=== PATIENT | male | born 1965 | race Caucasian/White ===

== ENCOUNTER 2017-02-05 19:13 | Emergency (ER) | payer SELFPAY ==
[2017-02-05] MEDS ORDERED: DUONEB 0.5 MG/3 MG ONE ×2 (19:14→21:06)
[2017-02-05] MEDS ORDERED: DUONEB 0.5 MG/3 MG NEB ONE ×2 (19:19→20:52)
--- NOTE | 2017-02-05 19:24 | DR.GENAD ---
HPI - Complaint/Symptoms Chief Complaint Doctors Comments: complaint of shortness of breath starting this afternoon. Hx of tobaccoo abuse. - Nurses notes reviewed Nurses Notes Review: Yes - Source History Provided: Patient - Mode of Arrival Mode of Arrival: Ambulatory - Timing Came on: Gradually - Duration Duration: Constant Duration: Hours - Location Location: lungs - Severity Severity: Severe - Modifying Factors Worsens:: exertion and smoking - Associated Signs and Symptoms Associated Signs and Symptoms: retractions PMH - PMH Past Medical History: COPD PE - Vital Signs Vitals: Temperature 97.6 F Pulse Rate [Left] 107 Pulse Rate 125 Respiratory Rate 20 Blood Pressure [Right Arm] 141/85 Blood Pressure 199/129 O2 Sat by Pulse Oximetry 93 ROR - Labs Reviewed Result Diagrams: 02/05/17 19:20 02/05/17 19:20 Laboratory: WBC 13.6 X10^3/uL (3.6-10.0) H 02/05/17 19:20 RBC 5.56 X10^6/uL (4.7-6.0) 02/05/17 19:20 Hgb 18.8 g/dL (13.5-18.0) H 02/05/17 19:20 Hct 54.4 % (42.0-54.0) H 02/05/17 19:20 MCV 97.9 fL (80.0-100.0) 02/05/17 19:20 MCH 33.9 pg (27.0-34.0) 02/05/17 19:20 MCHC 34.6 g/dL (33.0-35.0) 02/05/17 19:20 RDW 13.7 % (11.6-16.5) 02/05/17 19:20 Plt Count 222 X10^3/uL (150.0-450.0) 02/05/17 19:20 MPV 8.1 fL (7.4-11.0) 02/05/17 19:20 Neut % 72.7 % (42.0-75.0) 02/05/17 19:20 Lymph % 17.8 % (21.0-51.0) L 02/05/17 19:20 [place] % 7.1 % (0.0-13.0) 02/05/17 19:20 Eos % 1.5 % (0.9-2.9) 02/05/17 19:20 Baso % 0.9 % (0.2-1.0) 02/05/17 19:20 Neut # 9.9 x10^3/uL (2.2-4.8) H 02/05/17 19:20 Lymph # 2.4 X10^3/uL (1.3-2.9) 02/05/17 19:20 [place] # 1.0 x10^3/uL (0.3-0.8) H 02/05/17 19:20 Eos # 0.2 x10^3/uL (0.0-0.2) 02/05/17 19:20 Baso # 0.1 X10^3/uL (0.0-0.1) 02/05/17 19:20 Absolute Nucleated RBC 0.0 /100WBC 02/05/17 19:20 Sample Site Rra 02/05/17 19:29 ABG pH 7.320 (7.35-7.45) L 02/05/17 19:29 ABG pCO2 49.0 mmHg (35.0-45.0) H 02/05/17 19:29 ABG pO2 89.0 mmHg (80.0-100.0) 02/05/17 19:29 ABG HCO3 25.2 mmol/L (22-26) 02/05/17 19:29 ABG O2 Saturation 96.0 % (90-100) 02/05/17 19:29 ABG Base Excess -1.4 mmol/L (-2.0-2.0) 02/05/17 19:29 Jacky Test Pos 02/05/17 19:29 A-a Gradient 135.0 mmHg 02/05/17 19:29 FiO2 40.000 02/05/17 19:29 Blood Gas Comments Farhan well mm 02/05/17 19:29 Sodium 142 mmol/L (136-145) 02/05/17 19:20 Corrected Sodium 144 mmol/L (136-145) 02/05/17 19:20 Potassium 3.8 mmol/L (3.5-5.1) 02/05/17 19:20 Chloride 104 mmol/L (98-107) 02/05/17 19:20 Carbon Dioxide 27.3 mmol/L (21-32) 02/05/17 19:20 BUN 13 mg/dL (7-18) 02/05/17 19:20 Creatinine 1.03 mg/dL (0.70-1.30) 02/05/17 19:20 Est GFR (MDRD) Af Amer > 60 (>60) 02/05/17 19:20 Est GFR (MDRD) Non-Af > 60 (>60) 02/05/17 19:20 Glucose 179 mg/dL (65-99) H 02/05/17 19:20 Calcium 9.0 mg/dL (8.5-10.1) 02/05/17 19:20 Troponin I < 0.02 ng/mL (0-1.5) 02/05/17 19:20 B-Natriuretic Peptide 379 pg/mL (0-79) H 02/05/17 19:20 Urine Opiates Screen Negative (NEG=<300) 02/05/17 19:55 Urine Methadone Screen Negative (NEG=<300) 02/05/17 19:55 Ur Barbiturates Screen Negative (NEG=<200) 02/05/17 19:55 Ur Phencyclidine Scrn Negative (NEG=<25) 02/05/17 19:55 Ur Amphetamines Screen Negative (NEG=<1000) 02/05/17 19:55 U Benzodiazepines Scrn Negative (NEG=<200) 02/05/17 19:55 Urine Cocaine Screen Negative (NEG=<300) 02/05/17 19:55 U Marijuana (THC) Screen Negative (NEG=<50) 02/05/17 19:55 Ethyl Alcohol mg/dL < 3 mg/dL (0-19.9) 02/05/17 19:20 - XRAY XRAY Interpreted by: Radiologist XRAY Findings: Chest: chronic interstitial disease - EKG Rate: 115 [place]: LAD Rhythm: ST Block: None Hypertrophy: LAE ST: Nonsp - Diagnosis Discharge Problem: COPD (chronic obstructive pulmonary disease) with acute bronchitis - Discharge Plan Condition: Stable Prescriptions: Albuterol Sulfate [Proventil HFA Inhaler 6.7 gm] 2 inh IN Q8H #1 each Azithromycin [Zithromax Z-Juan Carlos 5-day] 1 dose PO DAILY #6 tab Prednisone [Prednisone DS Dosepak 10 mg (12 day)] 1 juan carlos PO ONCE #1 juan carlos - Follow ups/Referrals Follow ups/Referrals: NFD,None [Primary Care Provider] - 3 days - Instructions
[2017-02-05 19:25] VITALS: BMI 25.1
[2017-02-05] MEDS: SOLU-Medrol 125 MG VIAL IVP ONE ×2 (19:28→19:41)
[2017-02-05] MEDS ORDERED: NITROSTAT SL ONE (19:30)
[2017-02-05] MEDS ORDERED: SOLU-Medrol 125 MG VIAL ONE (19:30)
[2017-02-05] MEDS: NITROSTAT SL PRN ×3 (19:30→19:45)
[2017-02-05 19:34] LABS: ABG BASE EXCESS -1.4 mmol/L (-2.0-2.0); ABG HCO3 25.2 mmol/L (22-26)
[2017-02-05 19:35] LABS: ABG ALLEN TEST POS
[2017-02-05] MEDS ORDERED: NS 1000 ML 1,000 ML ONE (19:37)
[2017-02-05 19:47] LABS: BLOOD UREA NITROGEN 13 mg/dL (7-18); CARBON DIOXIDE 27.3 mmol/L (21-32); CHLORIDE 104 mmol/L (98-107); COR NA(FOR HYPERGLY) 144 mmol/L (136-145); CREATININE 1.03 mg/dL (0.70-1.30); GLUCOSE 179 mg/dL (65-99); SODIUM 142 mmol/L (136-145); eGFR BLACK RACES > 60 (>60); eGFR NON BLACK RACES > 60 (>60)
[2017-02-05 19:52] LABS: BASOPHILS # (AUTO) 0.1 X10^3/uL (0.0-0.1); BASOPHILS % (AUTO) 0.9 % (0.2-1.0); EOSINOPHILS # (AUTO) 0.2 x10^3/uL (0.0-0.2); EOSINOPHILS % (AUTO) 1.5 % (0.9-2.9); HEMATOCRIT 54.4 % (42.0-54.0); HEMOGLOBIN 18.8 g/dL (13.5-18.0); LYMPHOCYTES # (AUTO) 2.4 X10^3/uL (1.3-2.9); LYMPHOCYTES % (AUTO) 17.8 % (21.0-51.0); MEAN CORPUSCULAR HEMOGLOBIN 33.9 pg (27.0-34.0); MEAN CORPUSCULAR HGB CONC 34.6 g/dL (33.0-35.0); MEAN CORPUSCULAR VOLUME 97.9 fL (80.0-100.0); MEAN PLATELET VOLUME 8.1 fL (7.4-11.0); MONOCYTES % (AUTO) 7.1 % (0.0-13.0); NEUTROPHILS # (AUTO) 9.9 x10^3/uL (2.2-4.8); NEUTROPHILS % (AUTO) 72.7 % (42.0-75.0); PLATELET COUNT 222 X10^3/uL (150.0-450.0); RED BLOOD COUNT 5.56 X10^6/uL (4.7-6.0); RED CELL DISTRIBUTION WIDTH 13.7 % (11.6-16.5); WHITE BLOOD COUNT 13.6 X10^3/uL (3.6-10.0)
[2017-02-05] MEDS ORDERED: NS 1000 ML 1,000 ML IV SCH (20:00)
[2017-02-05 20:01] LABS: TROPONIN I < 0.02 ng/mL (0-1.5)
[2017-02-05 20:06] VITALS: BP 141/85
[2017-02-05 20:07] LABS: B-TYPE NATRIURETIC PEPTIDE 379 pg/mL (0-79)
--- NOTE | 2017-02-05 20:08 | RAD ---
HISTORY: 51-year-old male with severe shortness of breath. Study: Single frontal view of the chest. Comparison: None. Findings: The trachea is midline. The cardiac silhouette is borderline enlarged. Diffuse reticular nodular t hickening of the interstitium without focal consolidation, effusion or pneumothorax. The bony thora x is unremarkable. IMPRESSION: 1. Borderline cardiomegaly with diffuse interstitial disease, likely chronic. Reported By:
[2017-02-05] MEDS ORDERED: LASIX IVP ONE (20:19)
[2017-02-05] MEDS ORDERED: K-DUR TAB 20 MEQ PO ONE (20:23)
[2017-02-05] MEDS ORDERED: LASIX ONE (20:23)
[2017-02-05] MEDS ORDERED: ZITHROMAX TAB 250 MG PO ONE ×2 (20:58→21:25)
[2017-02-05] MEDS ORDERED: K-DUR TAB 20 MEQ PO SCH (21:00)
== END 2017-02-05 21:34 | disposition home or self-care (01) ==
LOC: ER 19:20
DX: R06.02 Shortness of breath (principal); J20.9 Acute bronchitis, unspecified; Z72.0 Tobacco use; R94.31 Abnormal electrocardiogram [ECG] [EKG]
CPT/HCPCS: 36415; 36600; 71010; 80048; 80307; 80320; 82803; 83880; 84484; 85025; 93005; 93010; 94640; 96365; 96367; 96374; 96375; 99283; A4222; Q0144; G0434; G6040; J1940; J2930; J7620

== ENCOUNTER 2017-08-30 23:31 | Emergency (ER) | payer SELFPAY ==
[2017-08-30 23:46] VITALS: BP 125/93; BMI 23.6
== END 2017-08-31 02:00 | disposition home or self-care (01) ==
LOC: ER 23:31
DX: R06.02 Shortness of breath (principal)
CPT/HCPCS: 99281

== ENCOUNTER 2023-12-12 11:35 | Inpatient (IN) ==
--- NOTE | 2023-12-12 12:31 | DR.H&P ---
H&P History & Physical for Day of: H&P Date: 12/12/23 Chief Complaint Chief Complaint: shortness of breath, copd exacerbation Allergies Allergies Allergy/AdvReac Type Severity Reaction Status Date / Time MS No Known Drug Allergy Allergy Verified 12/12/23 12:26 History of Present Illness History of Present Illness: Patient is a 58 yo male that is a direct admit per Dr. Slaughter's office secondary to COPD exacerbation. Patient reports that he has been out of his meds for a couple of weeks. Reports that he has been having increased shortness of breath. Reports that he is unable to walk 10-15 feet without getting short-winded. Reports that he has had an increase in cough and congestion. Denies fever. Patient will be admitted for further evaluation. Past Medical History Past Medical History: COPD Family History Family Medical History: [place], Heart Failure and Hypertension Review of Systems Constitutional: See HPI Eyes: See HPI ENT: See HPI Respiratory: Cough, Shortness of Breath, SOB with Excertion, Sputum and Wheezing Cardiovascular: No Symptoms Reported Gastrointestinal: No Symptoms Reported Genitourinary: No Symptoms Reported Musculoskeletal: No Symptoms Reported Skin: No Symptoms Reported Neurological: No Symptoms Reported Oriented: Normal Eyes: Normal Ear: Normal Nose: Normal Throat: Normal Respiratory: Diminished Throughout and Wheezes Throughout Cardiovascular: Normal : Normal Palpation: Normal Tenderness: Normal Skin: Normal Musculoskeletal: Right, Shoulder and Tender Psychiatric: Anxiety Mood Description: Depressed Affect: Anxious Speech Pattern: Clear Assessment/Plan (1) COPD (chronic obstructive pulmonary disease) with acute bronchitis: Status: Acute
[2023-12-12] MEDS ORDERED: PROVENTIL NEB TX 0.083% 2.5MG/ 3ML NEB PRN (13:20)
[2023-12-12] MEDS: DUONEB 0.5 MG/3 MG (3 mL) NEB SCH (13:31)
[2023-12-12 13:51] LABS: ABG ALLEN TEST POS; ABG BASE EXCESS 7.6 mmol/L (-2.0-2.0); ABG HCO3 32.7 mmol/L (22-26)
[2023-12-12] MEDS: PULMICORT NEB TX 0.5 MG NEB SCH (14:00)
[2023-12-12 14:40] LABS: BASOPHILS # (AUTO) 0.1 X10^3/uL (0.0-0.1); BASOPHILS % (AUTO) 0.4 % (0.2-1.0); EOSINOPHILS % (AUTO) 0.1 % (0.9-2.9); HEMATOCRIT 41.4 % (42.0-54.0); HEMOGLOBIN 14.1 g/dL (13.5-18.0); LYMPHOCYTES # (AUTO) 0.7 X10^3/uL (1.3-2.9); LYMPHOCYTES % (AUTO) 5.9 % (21.0-51.0); MEAN CORPUSCULAR HGB CONC 33.9 g/dL (33.0-35.0); MEAN CORPUSCULAR VOLUME 91.5 fL (80.0-100.0); MEAN PLATELET VOLUME 7.7 fL (7.4-11.0); MONOCYTES # (AUTO) 0.8 x10^3/uL (0.3-0.8); MONOCYTES % (AUTO) 6.6 % (0.0-13.0); NEUTROPHILS # (AUTO) 10.5 x10^3/uL (2.2-4.8); PLATELET COUNT 240 X10^3/uL (150.0-450.0); RED BLOOD COUNT 4.53 X10^6/uL (4.7-6.0); RED CELL DISTRIBUTION WIDTH 13.9 % (11.6-16.5); WHITE BLOOD COUNT 12.1 X10^3/uL (3.6-10.0)
[2023-12-12 14:42] LABS: BILIRUBIN,URINE NEGATIVE (NEGATIVE); BLOOD/HEMOGLOBIN,URINE 1+ (NEGATIVE); GLUCOSE, URINE NEGATIVE (NEGATIVE); KETONES,URINE NEGATIVE (NEGATIVE); LEUKOCYTE ESTERASE ,URINE NEGATIVE (NEGATIVE); NITRITES,URINE NEGATIVE (NEGATIVE); PROTEIN,URINE NEGATIVE (NEGATIVE); UROBILINOGEN,URINE NORMAL (NORMAL)
[2023-12-12 14:49] LABS: ALANINE AMINOTRANSFERASE 23 Units/L (12-78); ALKALINE PHOSPHATASE 72 Units/L (46-116); ASPARTATE AMINO TRANSFERASE 18 Units/L (15-37); BLOOD UREA NITROGEN 21 mg/dL (7-18); CALCIUM 9.2 mg/dL (8.5-10.1); CARBON DIOXIDE 31.9 mmol/L (21-32); CHLORIDE 98 mmol/L (98-107); COR NA(FOR HYPERGLY) 138 mmol/L (136-145); CREATININE 1.36 mg/dL (0.70-1.30); GLUCOSE 142 mg/dL (65-99); POTASSIUM 3.4 mmol/L (3.5-5.1); SODIUM 137 mmol/L (136-145); TOTAL PROTEIN 7.5 g/dL (6.4-8.2); eGFR NON BLACK RACES 57 (>60)
[2023-12-12 14:53] LABS: APPEARANCE,URINE CLEAR (CLEAR); COLOR,URINE YELLOW (YELLOW)
[2023-12-12 15:08] LABS: BACTERIA,URINE NEGATIVE /HPF (NEGATIVE); RBC,URINE 0-2 /HPF (0-3); SQUAMOUS EPITHELIAL CELL,UR RARE /HPF (NEGATIVE)
[2023-12-12 15:29] VITALS: BMI 26.2
--- NOTE | 2023-12-12 15:29 | RAD ---
EXAM:CHEST, PA/LAT ADULTHISTORY:COPD; COPDCOMPARISON:No relevant prior studies were available for comparison at the time of interpretation.TECHNIQUE:CHEST, PA/LAT ADULTFINDINGS:Chest:Lines and tubes: NoneMediastinum: Cardiac and mediastinal shadow is within normal limits for size and contour.Pulmonary vessels: No pulmonary vascular congestion.Lung reyez: Interstitial markings and hyperinflation of the lungs with diaphragmatic flattening.Pleura: No effusion. No pneumothorax.Bones and soft tissues: No acute osseous or soft tissue abnormality.IMPRESSION:1. No acute cardiopulmonary abnormalityTHIS IS AN ELECTRONICALLY VERIFIED FINAL REPORT12/12/2023 3:26 PM - Electronically signed by Killian Menjivar MD
--- NOTE | 2023-12-12 15:40 | EKG ---
Test Reason : AFIB, HR >120 Blood Pressure : */* mmHG Vent. Rate : 107 BPM Atrial Rate : 104 BPM P-R Int : * ms QRS Dur : 70 ms QT Int : 310 ms P-R-T Axes : * -69 90 degrees QTc Int : 413 ms Atrial fibrillation Left axis deviation Low voltage QRS Inferior infarct , age undetermined Cannot rule out Anterior infarct , age undetermined Abnormal ECG No previous ECGs available Confirmed by Marquez Martins MD ([id number]) on 12/13/2023 8:02:51 AM Referred By: Confirmed By: Marquez Martins MD
[2023-12-12] MEDS: DUONEB 0.5 MG/3 MG (3 mL) NEB ONE (15:43)
[2023-12-12] MEDS: CONSULT PHARMACY - POTASSIUM & MAGNESIUM XX SCH (15:44)
[2023-12-12] MEDS: ROCEPHIN VIAL 1 GRAM 1 G in NS 100 ML IV 100 ML IV SCH (16:13)
[2023-12-12] MEDS: ZITHROMAX INJ 500 MG VIAL 500 MG in NS 250 ML IV 250 ML IV SCH (16:13)
[2023-12-12] MEDS: SOLU-Medrol 40 MG VIAL IVP SCH (16:13)
[2023-12-12] MEDS: K-DUR TAB 20 MEQ PO ONE (16:13)
[2023-12-12] MEDS: NS 1,000 ML IV 1,000 ML IV SCH (16:15)
[2023-12-12] MEDS ORDERED: LOPRESSOR TAB 50 MG ONE (17:05)
[2023-12-12] MEDS: ELIQUIS PO SCH (17:11)
[2023-12-12] MEDS: LOPRESSOR INJ 5 MG AMP IVP ONE (17:12)
[2023-12-12] MEDS: LOPRESSOR TAB 50 MG PO SCH (17:12)
[2023-12-12 17:58] LABS: CREATINE KINASE 58 Units/L (39-308)
[2023-12-12] MEDS: LASIX PO SCH (21:26)
[2023-12-12] MEDS: ZOCOR TAB 20 MG PO SCH (21:27)
--- NOTE | 2023-12-12 21:30 | EKG ---
Test Reason : AFIB WITH RVR Blood Pressure : */* mmHG Vent. Rate : 91 BPM Atrial Rate : * BPM P-R Int : * ms QRS Dur : 74 ms QT Int : 364 ms P-R-T Axes : * -41 76 degrees QTc Int : 447 ms Atrial fibrillation with premature ventricular or aberrantly conducted complexes Left axis deviation Low voltage QRS Inferior infarct (cited on or before 12-DEC-2023) Cannot rule out Anterior infarct (cited on or before 12-DEC-2023) Abnormal ECG When compared with ECG of 12-DEC-2023 15:20, (Unconfirmed) Previous ECG has undetermined rhythm, needs review Questionable change in initial forces of Anterior leads Confirmed by Marquez Martins MD ([id number]) on 12/13/2023 7:57:52 AM Referred By: Confirmed By: Marquez Martins MD
[2023-12-12 23:55] LABS: CREATINE KINASE 46 Units/L (39-308)
--- NOTE | 2023-12-13 02:49 | EKG ---
Test Reason : AFIB WITH RVR Blood Pressure : */* mmHG Vent. Rate : 102 BPM Atrial Rate : * BPM P-R Int : * ms QRS Dur : 76 ms QT Int : 358 ms P-R-T Axes : * -37 60 degrees QTc Int : 466 ms Atrial fibrillation with rapid ventricular response Left axis deviation Low voltage QRS Inferior infarct (cited on or before 12-DEC-2023) Cannot rule out Anterior infarct (cited on or before 12-DEC-2023) Abnormal ECG When compared with ECG of 12-DEC-2023 21:17, (Unconfirmed) No significant change was found Confirmed by Marquez Martins MD ([id number]) on 12/13/2023 7:56:42 AM Referred By: Confirmed By: Marquez Martins MD
[2023-12-13 06:05] LABS: BASOPHILS % (AUTO) 0.2 % (0.2-1.0); LYMPHOCYTES # (AUTO) 0.3 X10^3/uL (1.3-2.9); MONOCYTES # (AUTO) 0.1 x10^3/uL (0.3-0.8); NEUTROPHILS # (AUTO) 10.6 x10^3/uL (2.2-4.8); NEUTROPHILS % (AUTO) 96.3 % (42.0-75.0)
[2023-12-13 06:13] LABS: ALANINE AMINOTRANSFERASE 20 Units/L (12-78); ALBUMIN 2.5 g/dL (3.4-5.0); ALKALINE PHOSPHATASE 61 Units/L (46-116); ASPARTATE AMINO TRANSFERASE 15 Units/L (15-37); BLOOD UREA NITROGEN 21 mg/dL (7-18); CALCIUM 8.2 mg/dL (8.5-10.1); CARBON DIOXIDE 27.9 mmol/L (21-32); CHLORIDE 98 mmol/L (98-107); COR CA(FOR HYPOALB) 9.4 mg/dL (8.5-10.1); COR NA(FOR HYPERGLY) 139 mmol/L (136-145); CREATINE KINASE 40 Units/L (39-308); CREATININE 1.22 mg/dL (0.70-1.30); GLUCOSE 297 mg/dL (65-99); MAGNESIUM 2.1 mg/dL (2.0-2.9); POTASSIUM 3.9 mmol/L (3.5-5.1); SODIUM 134 mmol/L (136-145); TOTAL PROTEIN 6.7 g/dL (6.4-8.2); eGFR NON BLACK RACES > 60 (>60)
[2023-12-13 06:14] LABS: HEMATOCRIT 38.7 % (42.0-54.0); HEMOGLOBIN 13.1 g/dL (13.5-18.0); LYMPHOCYTES % (AUTO) 2.4 % (21.0-51.0); MEAN CORPUSCULAR HEMOGLOBIN 31.3 pg (27.0-34.0); MEAN CORPUSCULAR HGB CONC 33.9 g/dL (33.0-35.0); MEAN CORPUSCULAR VOLUME 92.5 fL (80.0-100.0); MEAN PLATELET VOLUME 8.2 fL (7.4-11.0); MONOCYTES % (AUTO) 1.1 % (0.0-13.0); PLATELET COUNT 214 X10^3/uL (150.0-450.0); RED BLOOD COUNT 4.18 X10^6/uL (4.7-6.0)
[2023-12-13 06:53] LABS: BAND NEUTROPHILS % 3 % (0-10); PLATELET MORPHOLOGY COMMENT NORMAL (NORMAL)
[2023-12-13] MEDS ORDERED: ZITHROMAX INJ 500 MG VIAL IV ONE (08:13)
--- NOTE | 2023-12-13 08:20 | RAD ---
EXAM:Portable AP chestHISTORY:COPDCOMPARISON:12/12/2023 br.br.br.br hyperinflation and slight chronic interstitial prominence. There is no definite pneumonia, CHF or pleural fluid.IMPRESSION:COPD. No acute findings.THIS IS AN ELECTRONICALLY VERIFIED FINAL REPORT12/13/2023 8:15 AM - Electronically signed by Kirby Heller MD
[2023-12-13] MEDS: CLARITIN PO SCH (08:24)
[2023-12-13] MEDS: ZESTRIL TAB 5 MG PO SCH (08:24)
--- NOTE | 2023-12-13 11:23 | PCM.PROG ---
Progress Note Progress Note for Day of Date of Exam: 12/13/23 Subjective Subjective: PT IS 58 WM, DIRECT ADMIT FROM DR MARCIAL'S OFFICE, [facility], WITH COPD EXACERBATION. PT HAS PMH OF AFIB, CAD, CHF AND COPD. PT STATES HE HAS BEEN ON O2 AT HOME AND USING NEBULIZERS WITHOUT IMPROVEMENT. PTS HOME MEDICATION HAS NEEN RESUMED. PT HAD INCREASE CO2 RETENTION ON ABG. PLAN TO CONTINUE CURRENTLY IV ATBX, RESP THERAPY, IV SOLU MEDROL DECREASED TO 40MG BID DUE TO HYPERGLYCEMIA AND REPEAT AM CXR. Past Medical Family Social History Allergies: Allergies No Known Allergies Allergy (Verified 12/12/23 13:42) Vital Signs and I&O's Vital Signs: Vital Signs Temperature 97.2 F Temperature 98.0 F Pulse Rate [Right] 124 Pulse Rate [Right] 116 Pulse Rate 109 Pulse Rate 103 Respiratory Rate 20 Respiratory Rate 20 Blood Pressure [Right Arm] 139/71 Blood Pressure [Right Arm] 125/70 O2 Sat by Pulse Oximetry 98 O2 Sat by Pulse Oximetry 95 O2 Sat by Pulse Oximetry 98 O2 Sat by Pulse Oximetry 97 Intake and Output: Intake & Output 12/10/23 12/11/23 12/12/23 12/13/23 11:59 11:59 11:59 11:59 Intake Total 759 / 759 Output Total 700 / 700 Balance Physical Exam Oriented: Normal Eyes: Normal Ear: Normal Nose: Normal Throat: Normal Respiratory: Wheezes Cardiovascular: Normal : Normal Tenderness: Normal Skin: Normal Musculoskeletal: Right, Shoulder and Tender Psychiatric: Anxiety Mood Description: Depressed Affect: Anxious Speech Pattern: Clear and Appropriate Laboratory and Diagnostics 12/13/23 05:20 12/13/23 05:20 Labs: 12/12/23 14:15 Urine,Clean Catch Urine Culture - Preliminary 12/12/23 13:20 Sputum - Expectorated Sputum Sputum Culture - Preliminary 12/12/23 13:20 Sputum - Expectorated Sputum - Final Laboratory WBC 11.0 X10^3/uL (3.6-10.0) H 12/13/23 05:20 RBC 4.18 X10^6/uL (4.7-6.0) L 12/13/23 05:20 Hgb 13.1 g/dL (13.5-18.0) L 12/13/23 05:20 Hct 38.7 % (42.0-54.0) L 12/13/23 05:20 MCV 92.5 fL (80.0-100.0) 12/13/23 05:20 MCH 31.3 pg (27.0-34.0) 12/13/23 05:20 MCHC 33.9 g/dL (33.0-35.0) 12/13/23 05:20 RDW 14.0 % (11.6-16.5) 12/13/23 05:20 Plt Count 214 X10^3/uL (150.0-450.0) 12/13/23 05:20 Plt Count Comment Adequate (ADEQUATE) 12/13/23 05:20 MPV 8.2 fL (7.4-11.0) 12/13/23 05:20 Neut % (Auto) 96.3 % (42.0-75.0) H 12/13/23 05:20 Lymph % (Auto) 2.4 % (21.0-51.0) L 12/13/23 05:20 Long % (Auto) 1.1 % (0.0-13.0) 12/13/23 05:20 Eos % (Auto) 0.0 % (0.9-2.9) L 12/13/23 05:20 Baso % (Auto) 0.2 % (0.2-1.0) 12/13/23 05:20 Neut # (Auto) 10.6 x10^3/uL (2.2-4.8) H 12/13/23 05:20 Lymph # (Auto) 0.3 X10^3/uL (1.3-2.9) L 12/13/23 05:20 Long # (Auto) 0.1 x10^3/uL (0.3-0.8) L 12/13/23 05:20 Eos # (Auto) 0.0 x10^3/uL (0.0-0.2) 12/13/23 05:20 Baso # (Auto) 0.0 X10^3/uL (0.0-0.1) 12/13/23 05:20 Absolute Nucleated RBC 0.0 /100WBC 12/13/23 05:20 Total Counted 100 12/13/23 05:20 Neutrophils % (Manual) 94 % (39-76) H 12/13/23 05:20 Band Neutrophils % 3 % (0-10) 12/13/23 05:20 Lymphocytes % (Manual) 2 % (13-43) L 12/13/23 05:20 Monocytes % (Manual) 1 % (4-9) L 12/13/23 05:20 Plt Morphology Comment Normal (NORMAL) 12/13/23 05:20 RBC Morphology Normal (NORMAL) 12/13/23 05:20 Sample Site Rrad 12/12/23 13:44 ABG pH 7.450 (7.35-7.45) 12/12/23 13:44 ABG pCO2 47.0 mmHg (35.0-45.0) H 12/12/23 13:44 ABG pO2 81.0 mmHg (80.0-100.0) 12/12/23 13:44 ABG HCO3 32.7 mmol/L (22-26) H* 12/12/23 13:44 ABG O2 Saturation 96.0 % (90-100) 12/12/23 13:44 ABG Base Excess 7.6 mmol/L (-2.0-2.0) H 12/12/23 13:44 Jacky Test Pos 12/12/23 13:44 A-a Gradient 88.0 mmHg 12/12/23 13:44 FiO2 32.0 12/12/23 13:44 Blood Gas Comments Pt rebecca well elj cdn 12/12/23 13:44 Sodium 134 mmol/L (136-145) L 12/13/23 05:20 Corrected Sodium 139 mmol/L (136-145) 12/13/23 05:20 Potassium 3.9 mmol/L (3.5-5.1) 12/13/23 05:20 Chloride 98 mmol/L (98-107) 12/13/23 05:20 Carbon Dioxide 27.9 mmol/L (21-32) 12/13/23 05:20 BUN 21 mg/dL (7-18) H 12/13/23 05:20 Creatinine 1.22 mg/dL (0.70-1.30) 12/13/23 05:20 Est GFR (MDRD) Af Amer > 60 (>60) 12/13/23 05:20 Est GFR (MDRD) Non-Af > 60 (>60) 12/13/23 05:20 Glucose 297 mg/dL (65-99) H 12/13/23 05:20 Calcium 8.2 mg/dL (8.5-10.1) L 12/13/23 05:20 Corrected Calcium 9.4 mg/dL (8.5-10.1) 12/13/23 05:20 Magnesium 2.1 mg/dL (2.0-2.9) 12/13/23 05:20 Total Bilirubin 0.20 mg/dL (0.2-1.0) 12/13/23 05:20 AST 15 Units/L (15-37) 12/13/23 05:20 ALT 20 Units/L (12-78) 12/13/23 05:20 Alkaline Phosphatase 61 Units/L (46-116) 12/13/23 05:20 Creatine Kinase 40 Units/L (39-308) 12/13/23 05:20 Troponin I High Sens < 4.0 ng/L (4.0-60.0) L 12/13/23 05:20 Total Protein 6.7 g/dL (6.4-8.2) 12/13/23 05:20 Albumin 2.5 g/dL (3.4-5.0) L 12/13/23 05:20 Globulin 4.2 g/dL (2.5-4.5) 12/13/23 05:20 Albumin/Globulin Ratio 0.6 Ratio (1.1-2.1) L 12/13/23 05:20 Specimen Type Clean catch urine 12/12/23 14:15 Urine Color Yellow (YELLOW) 12/12/23 14:15 Urine Appearance Clear (CLEAR) 12/12/23 14:15 Urine pH 7.0 (5.0 - 8.0) 12/12/23 14:15 Ur Specific [place] 1.010 (1.000-1.030) 12/12/23 14:15 Urine Protein Negative (NEGATIVE) 12/12/23 14:15 Urine Glucose (UA) Negative (NEGATIVE) 12/12/23 14:15 Urine Ketones Negative (NEGATIVE) 12/12/23 14:15 Urine Blood 1+ (NEGATIVE) 12/12/23 14:15 Urine Nitrite Negative (NEGATIVE) 12/12/23 14:15 Urine Bilirubin Negative (NEGATIVE) 12/12/23 14:15 Urine Urobilinogen Normal (NORMAL) 12/12/23 14:15 Ur Leukocyte Esterase Negative (NEGATIVE) 12/12/23 14:15 Urine RBC 0-2 /HPF (0-3) 12/12/23 14:15 Urine WBC None seen /HPF (0-5) 12/12/23 14:15 Ur Squamous Epith Cells Rare /HPF (NEGATIVE) 12/12/23 14:15 Urine Bacteria Negative /HPF (NEGATIVE) 12/12/23 14:15 Ur Culture Indicated? No/not indicated 12/12/23 14:15 Plan (1) COPD (chronic obstructive pulmonary disease) with acute bronchitis: Status: Acute Narrative Support Text: IV ATBX, RESP THERAPY SUPPLEMENTAL O2 GENTLE IV HYDRATION WITH I&OS SPUTUM CULTURE ON ADMISSION REPEAT AM LABS AND CXR
[2023-12-13] MEDS: XOPENEX 1.25 MG/3 ML NEBULE NEB SCH (13:04)
[2023-12-13] MEDS: SOLU-Medrol 40 MG VIAL IVP SCH (21:04)
[2023-12-14 07:38] LABS: HEMOGLOBIN 12.9 g/dL (13.5-18.0); NEUTROPHILS # (AUTO) 15.8 x10^3/uL (2.2-4.8); WHITE BLOOD COUNT 17.4 X10^3/uL (3.6-10.0)
[2023-12-14 07:41] LABS: BASOPHILS % (AUTO) 0.2 % (0.2-1.0); HEMATOCRIT 38.2 % (42.0-54.0); LYMPHOCYTES # (AUTO) 0.7 X10^3/uL (1.3-2.9); LYMPHOCYTES % (AUTO) 4.1 % (21.0-51.0); MEAN CORPUSCULAR HEMOGLOBIN 31.2 pg (27.0-34.0); MEAN CORPUSCULAR HGB CONC 33.8 g/dL (33.0-35.0); MEAN CORPUSCULAR VOLUME 92.4 fL (80.0-100.0); MEAN PLATELET VOLUME 7.5 fL (7.4-11.0); MONOCYTES # (AUTO) 0.9 x10^3/uL (0.3-0.8); NEUTROPHILS % (AUTO) 90.7 % (42.0-75.0); PLATELET COUNT 243 X10^3/uL (150.0-450.0); RED BLOOD COUNT 4.13 X10^6/uL (4.7-6.0); RED CELL DISTRIBUTION WIDTH 13.9 % (11.6-16.5)
[2023-12-14 07:50] LABS: ALANINE AMINOTRANSFERASE 21 Units/L (12-78); ALBUMIN 2.6 g/dL (3.4-5.0); ALKALINE PHOSPHATASE 59 Units/L (46-116); ASPARTATE AMINO TRANSFERASE 14 Units/L (15-37); BLOOD UREA NITROGEN 22 mg/dL (7-18); CALCIUM 8.4 mg/dL (8.5-10.1); CARBON DIOXIDE 29.5 mmol/L (21-32); CHLORIDE 104 mmol/L (98-107); COR CA(FOR HYPOALB) 9.5 mg/dL (8.5-10.1); GLUCOSE 101 mg/dL (65-99); POTASSIUM 3.9 mmol/L (3.5-5.1); SODIUM 139 mmol/L (136-145); TOTAL PROTEIN 6.6 g/dL (6.4-8.2); eGFR NON BLACK RACES > 60 (>60)
[2023-12-14 08:02] LABS: PLATELET MORPHOLOGY COMMENT NORMAL (NORMAL)
[2023-12-14] MEDS: CARDIZEM CD 120 MG 24-HR PO SCH (10:13)
--- NOTE | 2023-12-14 19:01 | PCM.PROG ---
Progress Note Progress Note for Day of Date of Exam: 12/14/23 Subjective Subjective: PT IS 58 WM, DIRECT ADMIT FROM DR MARCIAL'S OFFICE, [facility], WITH COPD EXACERBATION. PT HAS PMH OF AFIB, CAD, CHF AND COPD. PT STATES HE HAS BEEN ON O2 AT HOME AND USING NEBULIZERS WITHOUT IMPROVEMENT. PTS HOME MEDICATION HAS NEEN RESUMED. PT HAD INCREASE CO2 RETENTION ON ABG. PLAN TO CONTINUE CURRENTLY IV ATBX, RESP THERAPY, IV SOLU MEDROL DECREASED TO 40MG BID DUE TO HYPERGLYCEMIA AND REPEAT AM CXR. Saturday, 14 December 2023 The patient reports he is feeling okay this morning. He has not had any significant problems since yesterday morning. The nurses have noted that he starts getting tachycardic at the end of the 12 hours of his metoprolol. His heart rate is going up to the 130s they report. He is on metoprolol tartrate 50 mg twice daily for his atrial fibrillation. I will added Cardizem CD 120 mg p.o. daily as well to see if this will help control his rate better. I am also going to add IV Levaquin 500 mg daily as he is developed a leukocytosis compared to yesterday. His white blood cell count this morning is 17,400. Past Medical Family Social History Allergies: Allergies No Known Allergies Allergy (Verified 12/12/23 13:42) Review of Systems ROS: No change since H&P Vital Signs and I&O's Vital Signs: Vital Signs Temperature 97.4 F Temperature 98.1 F Pulse Rate [Right] 97 Pulse Rate [Right] 83 Respiratory Rate 20 Respiratory Rate 20 Blood Pressure [Left Arm] 96/60 Blood Pressure [Left Arm] 100/56 O2 Sat by Pulse Oximetry 96 O2 Sat by Pulse Oximetry 97 Intake and Output: Intake & Output 12/12/23 12/13/23 12/14/23 12/15/23 11:59 11:59 11:59 11:59 Intake Total 759 / 759 2333 / 2333 1321 / 1321 Output Total 700 / 700 2049 / 0 1050 / 1050 Balance 283 / 283 271 / 271 Physical Exam Oriented: Normal Eyes: Normal Ear: Normal Nose: Normal Throat: Normal Respiratory: Wheezes Cardiovascular: Normal : Normal Tenderness: Normal Skin: Normal Musculoskeletal: Right, Shoulder and Tender Psychiatric: Anxiety Mood Description: Depressed Affect: Anxious Speech Pattern: Clear and Appropriate Laboratory and Diagnostics 12/14/23 07:25 12/14/23 07:25 Labs: 12/12/23 19:06 Blood Blood Culture - Preliminary 12/12/23 19:00 Blood Blood Culture - Preliminary 12/12/23 13:20 Sputum - Expectorated Sputum Sputum Culture - Final 12/12/23 13:20 Sputum - Expectorated Sputum - Final 12/12/23 14:15 Urine,Clean Catch Urine Culture - Final Laboratory WBC 17.4 X10^3/uL (3.6-10.0) H 12/14/23 07:25 RBC 4.13 X10^6/uL (4.7-6.0) L 12/14/23 07:25 Hgb 12.9 g/dL (13.5-18.0) L 12/14/23 07:25 Hct 38.2 % (42.0-54.0) L 12/14/23 07:25 MCV 92.4 fL (80.0-100.0) 12/14/23 07:25 MCH 31.2 pg (27.0-34.0) 12/14/23 07:25 MCHC 33.8 g/dL (33.0-35.0) 12/14/23 07:25 RDW 13.9 % (11.6-16.5) 12/14/23 07:25 Plt Count 243 X10^3/uL (150.0-450.0) 12/14/23 07:25 Plt Count Comment Adequate (ADEQUATE) 12/14/23 07:25 MPV 7.5 fL (7.4-11.0) 12/14/23 07:25 Neut % (Auto) 90.7 % (42.0-75.0) H 12/14/23 07:25 Lymph % (Auto) 4.1 % (21.0-51.0) L 12/14/23 07:25 [place] % (Auto) 5.0 % (0.0-13.0) 12/14/23 07:25 Eos % (Auto) 0.0 % (0.9-2.9) L 12/14/23 07:25 Baso % (Auto) 0.2 % (0.2-1.0) 12/14/23 07:25 Neut # (Auto) 15.8 x10^3/uL (2.2-4.8) H 12/14/23 07:25 Lymph # (Auto) 0.7 X10^3/uL (1.3-2.9) L 12/14/23 07:25 [place] # (Auto) 0.9 x10^3/uL (0.3-0.8) H 12/14/23 07:25 Eos # (Auto) 0.0 x10^3/uL (0.0-0.2) 12/14/23 07:25 Baso # (Auto) 0.0 X10^3/uL (0.0-0.1) 12/14/23 07:25 Absolute Nucleated RBC 0.1 /100WBC 12/14/23 07:25 Total Counted 100 12/14/23 07:25 Neutrophils % (Manual) 92 % (39-76) H 12/14/23 07:25 Band Neutrophils % 3 % (0-10) 12/13/23 05:20 Lymphocytes % (Manual) 5 % (13-43) L 12/14/23 07:25 Monocytes % (Manual) 3 % (4-9) L 12/14/23 07:25 Plt Morphology Comment Normal (NORMAL) 12/14/23 07:25 RBC Morphology Normal (NORMAL) 12/14/23 07:25 Sample Site Rrad 12/12/23 13:44 ABG pH 7.450 (7.35-7.45) 12/12/23 13:44 ABG pCO2 47.0 mmHg (35.0-45.0) H 12/12/23 13:44 ABG pO2 81.0 mmHg (80.0-100.0) 12/12/23 13:44 ABG HCO3 32.7 mmol/L (22-26) H* 12/12/23 13:44 ABG O2 Saturation 96.0 % (90-100) 12/12/23 13:44 ABG Base Excess 7.6 mmol/L (-2.0-2.0) H 12/12/23 13:44 Jacky Test Pos 12/12/23 13:44 A-a Gradient 88.0 mmHg 12/12/23 13:44 FiO2 32.0 12/12/23 13:44 Blood Gas Comments Pt rebecca well elj cdn 12/12/23 13:44 Sodium 139 mmol/L (136-145) 12/14/23 07:25 Corrected Sodium TNP 12/14/23 07:25 Potassium 3.9 mmol/L (3.5-5.1) 12/14/23 07:25 Chloride 104 mmol/L (98-107) 12/14/23 07:25 Carbon Dioxide 29.5 mmol/L (21-32) 12/14/23 07:25 BUN 22 mg/dL (7-18) H 12/14/23 07:25 Creatinine 1.10 mg/dL (0.70-1.30) 12/14/23 07:25 Est GFR (MDRD) Af Amer > 60 (>60) 12/14/23 07:25 Est GFR (MDRD) Non-Af > 60 (>60) 12/14/23 07:25 Glucose 101 mg/dL (65-99) H 12/14/23 07:25 Calcium 8.4 mg/dL (8.5-10.1) L 12/14/23 07:25 Corrected Calcium 9.5 mg/dL (8.5-10.1) 12/14/23 07:25 Magnesium 2.1 mg/dL (2.0-2.9) 12/13/23 05:20 Total Bilirubin 0.10 mg/dL (0.2-1.0) L 12/14/23 07:25 AST 14 Units/L (15-37) L 12/14/23 07:25 ALT 21 Units/L (12-78) 12/14/23 07:25 Alkaline Phosphatase 59 Units/L (46-116) 12/14/23 07:25 Creatine Kinase 40 Units/L (39-308) 12/13/23 05:20 Troponin I High Sens < 4.0 ng/L (4.0-60.0) L 12/13/23 05:20 Total Protein 6.6 g/dL (6.4-8.2) 12/14/23 07:25 Albumin 2.6 g/dL (3.4-5.0) L 12/14/23 07:25 Globulin 4.0 g/dL (2.5-4.5) 12/14/23 07:25 Albumin/Globulin Ratio 0.7 Ratio (1.1-2.1) L 12/14/23 07:25 Specimen Type Clean catch urine 12/12/23 14:15 Urine Color Yellow (YELLOW) 12/12/23 14:15 Urine Appearance Clear (CLEAR) 12/12/23 14:15 Urine pH 7.0 (5.0 - 8.0) 12/12/23 14:15 Ur Specific [place] 1.010 (1.000-1.030) 12/12/23 14:15 Urine Protein Negative (NEGATIVE) 12/12/23 14:15 Urine Glucose (UA) Negative (NEGATIVE) 12/12/23 14:15 Urine Ketones Negative (NEGATIVE) 12/12/23 14:15 Urine Blood 1+ (NEGATIVE) 12/12/23 14:15 Urine Nitrite Negative (NEGATIVE) 12/12/23 14:15 Urine Bilirubin Negative (NEGATIVE) 12/12/23 14:15 Urine Urobilinogen Normal (NORMAL) 12/12/23 14:15 Ur Leukocyte Esterase Negative (NEGATIVE) 12/12/23 14:15 Urine RBC 0-2 /HPF (0-3) 12/12/23 14:15 Urine WBC None seen /HPF (0-5) 12/12/23 14:15 Ur Squamous Epith Cells Rare /HPF (NEGATIVE) 12/12/23 14:15 Urine Bacteria Negative /HPF (NEGATIVE) 12/12/23 14:15 Ur Culture Indicated? No/not indicated 12/12/23 14:15 Plan (1) COPD (chronic obstructive pulmonary disease) with acute bronchitis: Status: Acute Plan: And IV Levaquin secondary leukocytosis. Discontinue IV azithromycin. (2) Atrial fibrillation: Status: Acute Plan: Add Cardizem CD 120 mg p.o. daily for improved rate control as he is having breakthrough bouts of tachycardia up to the 130s.
[2023-12-14] MEDS: LEVAQUIN PREMIX IV 500 MG 500 MG/100 ML BAG IV SCH (20:22)
[2023-12-15 05:42] LABS: BASOPHILS % (AUTO) 0.4 % (0.2-1.0); HEMATOCRIT 35.3 % (42.0-54.0); HEMOGLOBIN 11.9 g/dL (13.5-18.0); LYMPHOCYTES # (AUTO) 0.6 X10^3/uL (1.3-2.9); LYMPHOCYTES % (AUTO) 5.1 % (21.0-51.0); MEAN CORPUSCULAR HEMOGLOBIN 31.2 pg (27.0-34.0); MEAN CORPUSCULAR HGB CONC 33.6 g/dL (33.0-35.0); MEAN CORPUSCULAR VOLUME 92.7 fL (80.0-100.0); MONOCYTES # (AUTO) 0.4 x10^3/uL (0.3-0.8); MONOCYTES % (AUTO) 3.4 % (0.0-13.0); NEUTROPHILS # (AUTO) 10.9 x10^3/uL (2.2-4.8); NEUTROPHILS % (AUTO) 91.1 % (42.0-75.0); PLATELET COUNT 250 X10^3/uL (150.0-450.0); RED BLOOD COUNT 3.81 X10^6/uL (4.7-6.0); RED CELL DISTRIBUTION WIDTH 14.1 % (11.6-16.5); WHITE BLOOD COUNT 11.9 X10^3/uL (3.6-10.0)
[2023-12-15 06:02] LABS: ALANINE AMINOTRANSFERASE 22 Units/L (12-78); ALBUMIN 2.4 g/dL (3.4-5.0); ALKALINE PHOSPHATASE 50 Units/L (46-116); ASPARTATE AMINO TRANSFERASE 14 Units/L (15-37); BLOOD UREA NITROGEN 22 mg/dL (7-18); CALCIUM 7.9 mg/dL (8.5-10.1); CARBON DIOXIDE 29.7 mmol/L (21-32); CHLORIDE 104 mmol/L (98-107); COR CA(FOR HYPOALB) 9.2 mg/dL (8.5-10.1); COR NA(FOR HYPERGLY) 144 mmol/L (136-145); CREATININE 0.96 mg/dL (0.70-1.30); GLUCOSE 150 mg/dL (65-99); POTASSIUM 3.9 mmol/L (3.5-5.1); SODIUM 143 mmol/L (136-145); TOTAL PROTEIN 6.1 g/dL (6.4-8.2); eGFR NON BLACK RACES > 60 (>60)
--- NOTE | 2023-12-15 06:23 | RAD ---
EXAM: CHEST, PA/LAT ADULT HISTORY: COPD COMPARISON: 12/13/2023 FINDINGS: The trachea is midline. The cardiac silhouette is unremarkable . Chronic interstitial lung changes with flattening of the diaphragm consistent with COPD is observed. The bony thorax is unremarkable. IMPRESSION: No acute cardiopulmonary disease. THIS IS AN ELECTRONICALLY VERIFIED FINAL REPORT 12/15/2023 6:20 AM - Electronically signed by Frank Morales MD
[2023-12-15 06:51] LABS: PLATELET MORPHOLOGY COMMENT NORMAL (NORMAL)
--- NOTE | 2023-12-15 20:16 | PCM.PROG ---
Progress Note Progress Note for Day of Date of Exam: 12/15/23 Subjective Subjective: PT IS 58 WM, DIRECT ADMIT FROM DR MARCIAL'S OFFICE, [facility], WITH COPD EXACERBATION. PT HAS PMH OF AFIB, CAD, CHF AND COPD. PT STATES HE HAS BEEN ON O2 AT HOME AND USING NEBULIZERS WITHOUT IMPROVEMENT. PTS HOME MEDICATION HAS NEEN RESUMED. PT HAD INCREASE CO2 RETENTION ON ABG. PLAN TO CONTINUE CURRENTLY IV ATBX, RESP THERAPY, IV SOLU MEDROL DECREASED TO 40MG BID DUE TO HYPERGLYCEMIA AND REPEAT AM CXR. Saturday, 15 December 2023 The patient reports that he is feeling better today. He is still having some dyspnea but overall improved. I see that his heart rate is better controlled since adding Cardizem CD 120 mg yesterday. He is not spiking up as I have been doing previously. His chest x-ray shows no acute cardiopulmonary process this morning but he still has diffuse rhonchi and expiratory wheezing today. Will continue him on his current treatment at this time. The patient's leukocytosis has improved much since replacing as needed azithromycin with IV Levaquin. Past Medical Family Social History Allergies: Allergies No Known Allergies Allergy (Verified 12/12/23 13:42) Review of Systems ROS: No change since H&P Vital Signs and I&O's Vital Signs: Vital Signs Temperature 97.7 F Temperature 98 F Pulse Rate [Right] 96 Pulse Rate [Right] 80 Pulse Rate 100 Respiratory Rate 20 Respiratory Rate 16 Blood Pressure [Right Arm] 108/57 Blood Pressure [Right Arm] 92/55 O2 Sat by Pulse Oximetry 95 O2 Sat by Pulse Oximetry 96 O2 Sat by Pulse Oximetry 97 Intake and Output: Intake & Output 12/13/23 12/14/23 12/15/23 12/16/23 11:59 11:59 11:59 11:59 Intake Total 759 / 759 2333 / 2333 2111 / 2111 618 / 618 Output Total 700 / 700 0 / 0 2550 / 2550 Balance 59 / 283 / 283 -439 / -439 618 / 618 Physical Exam Oriented: Normal Eyes: Normal Ear: Normal Nose: Normal Throat: Normal Respiratory: Generalized, Wheezes and Rhonchi Cardiovascular: Normal : Normal Tenderness: Normal Skin: Normal Musculoskeletal: Right, Shoulder and Tender Psychiatric: Anxiety Mood Description: Depressed Affect: Anxious Speech Pattern: Clear and Appropriate Laboratory and Diagnostics 12/15/23 04:45 12/15/23 04:45 Labs: 12/12/23 19:06 Blood Blood Culture - Preliminary 12/12/23 19:00 Blood Blood Culture - Preliminary 12/12/23 13:20 Sputum - Expectorated Sputum Sputum Culture - Final 12/12/23 13:20 Sputum - Expectorated Sputum - Final 12/12/23 14:15 Urine,Clean Catch Urine Culture - Final Laboratory WBC 11.9 X10^3/uL (3.6-10.0) H 12/15/23 04:45 RBC 3.81 X10^6/uL (4.7-6.0) L 12/15/23 04:45 Hgb 11.9 g/dL (13.5-18.0) L 12/15/23 04:45 Hct 35.3 % (42.0-54.0) L 12/15/23 04:45 MCV 92.7 fL (80.0-100.0) 12/15/23 04:45 MCH 31.2 pg (27.0-34.0) 12/15/23 04:45 MCHC 33.6 g/dL (33.0-35.0) 12/15/23 04:45 RDW 14.1 % (11.6-16.5) 12/15/23 04:45 Plt Count 250 X10^3/uL (150.0-450.0) 12/15/23 04:45 Plt Count Comment Adequate (ADEQUATE) 12/15/23 04:45 MPV 8.0 fL (7.4-11.0) 12/15/23 04:45 Neut % (Auto) 91.1 % (42.0-75.0) H 12/15/23 04:45 Lymph % (Auto) 5.1 % (21.0-51.0) L 12/15/23 04:45 [place] % (Auto) 3.4 % (0.0-13.0) 12/15/23 04:45 Eos % (Auto) 0.0 % (0.9-2.9) L 12/15/23 04:45 Baso % (Auto) 0.4 % (0.2-1.0) 12/15/23 04:45 Neut # (Auto) 10.9 x10^3/uL (2.2-4.8) H 12/15/23 04:45 Lymph # (Auto) 0.6 X10^3/uL (1.3-2.9) L 12/15/23 04:45 [place] # (Auto) 0.4 x10^3/uL (0.3-0.8) 12/15/23 04:45 Eos # (Auto) 0.0 x10^3/uL (0.0-0.2) 12/15/23 04:45 Baso # (Auto) 0.0 X10^3/uL (0.0-0.1) 12/15/23 04:45 Absolute Nucleated RBC 0.1 /100WBC 12/15/23 04:45 Total Counted 100 12/15/23 04:45 Neutrophils % (Manual) 87 % (39-76) H 12/15/23 04:45 Band Neutrophils % 3 % (0-10) 12/13/23 05:20 Lymphocytes % (Manual) 8 % (13-43) L 12/15/23 04:45 Monocytes % (Manual) 5 % (4-9) 12/15/23 04:45 Plt Morphology Comment Normal (NORMAL) 12/15/23 04:45 RBC Morphology Normal (NORMAL) 12/15/23 04:45 Sample Site Rrad 12/12/23 13:44 ABG pH 7.450 (7.35-7.45) 12/12/23 13:44 ABG pCO2 47.0 mmHg (35.0-45.0) H 12/12/23 13:44 ABG pO2 81.0 mmHg (80.0-100.0) 12/12/23 13:44 ABG HCO3 32.7 mmol/L (22-26) H* 12/12/23 13:44 ABG O2 Saturation 96.0 % (90-100) 12/12/23 13:44 ABG Base Excess 7.6 mmol/L (-2.0-2.0) H 12/12/23 13:44 Jacky Test Pos 12/12/23 13:44 A-a Gradient 88.0 mmHg 12/12/23 13:44 FiO2 32.0 12/12/23 13:44 Blood Gas Comments Pt rebecca well elj cdn 12/12/23 13:44 Sodium 143 mmol/L (136-145) 12/15/23 04:45 Corrected Sodium 144 mmol/L (136-145) 12/15/23 04:45 Potassium 3.9 mmol/L (3.5-5.1) 12/15/23 04:45 Chloride 104 mmol/L (98-107) 12/15/23 04:45 Carbon Dioxide 29.7 mmol/L (21-32) 12/15/23 04:45 BUN 22 mg/dL (7-18) H 12/15/23 04:45 Creatinine 0.96 mg/dL (0.70-1.30) 12/15/23 04:45 Est GFR (MDRD) Af Amer > 60 (>60) 12/15/23 04:45 Est GFR (MDRD) Non-Af > 60 (>60) 12/15/23 04:45 Glucose 150 mg/dL (65-99) H 12/15/23 04:45 Calcium 7.9 mg/dL (8.5-10.1) L 12/15/23 04:45 Corrected Calcium 9.2 mg/dL (8.5-10.1) 12/15/23 04:45 Magnesium 2.1 mg/dL (2.0-2.9) 12/13/23 05:20 Total Bilirubin 0.20 mg/dL (0.2-1.0) 12/15/23 04:45 AST 14 Units/L (15-37) L 12/15/23 04:45 ALT 22 Units/L (12-78) 12/15/23 04:45 Alkaline Phosphatase 50 Units/L (46-116) 12/15/23 04:45 Creatine Kinase 40 Units/L (39-308) 12/13/23 05:20 Troponin I High Sens < 4.0 ng/L (4.0-60.0) L 12/13/23 05:20 Total Protein 6.1 g/dL (6.4-8.2) L 12/15/23 04:45 Albumin 2.4 g/dL (3.4-5.0) L 12/15/23 04:45 Globulin 3.7 g/dL (2.5-4.5) 12/15/23 04:45 Albumin/Globulin Ratio 0.6 Ratio (1.1-2.1) L 12/15/23 04:45 Specimen Type Clean catch urine 12/12/23 14:15 Urine Color Yellow (YELLOW) 12/12/23 14:15 Urine Appearance Clear (CLEAR) 12/12/23 14:15 Urine pH 7.0 (5.0 - 8.0) 12/12/23 14:15 Ur Specific [place] 1.010 (1.000-1.030) 12/12/23 14:15 Urine Protein Negative (NEGATIVE) 12/12/23 14:15 Urine Glucose (UA) Negative (NEGATIVE) 12/12/23 14:15 Urine Ketones Negative (NEGATIVE) 12/12/23 14:15 Urine Blood 1+ (NEGATIVE) 12/12/23 14:15 Urine Nitrite Negative (NEGATIVE) 12/12/23 14:15 Urine Bilirubin Negative (NEGATIVE) 12/12/23 14:15 Urine Urobilinogen Normal (NORMAL) 12/12/23 14:15 Ur Leukocyte Esterase Negative (NEGATIVE) 12/12/23 14:15 Urine RBC 0-2 /HPF (0-3) 12/12/23 14:15 Urine WBC None seen /HPF (0-5) 12/12/23 14:15 Ur Squamous Epith Cells Rare /HPF (NEGATIVE) 12/12/23 14:15 Urine Bacteria Negative /HPF (NEGATIVE) 12/12/23 14:15 Ur Culture Indicated? No/not indicated 12/12/23 14:15 Radiology Reviewed: Yes Plan (1) COPD (chronic obstructive pulmonary disease) with acute bronchitis: Status: Acute Plan: And IV Levaquin secondary leukocytosis. Discontinue IV azithromycin. (2) Atrial fibrillation: Status: Acute Plan: Add Cardizem CD 120 mg p.o. daily for improved rate control as he is having breakthrough bouts of tachycardia up to the 130s.
[2023-12-16 06:38] LABS: BASOPHILS % (AUTO) 0.1 % (0.2-1.0); HEMATOCRIT 39.5 % (42.0-54.0); HEMOGLOBIN 13.2 g/dL (13.5-18.0); LYMPHOCYTES # (AUTO) 0.8 X10^3/uL (1.3-2.9); LYMPHOCYTES % (AUTO) 6.6 % (21.0-51.0); MEAN CORPUSCULAR HGB CONC 33.5 g/dL (33.0-35.0); MEAN CORPUSCULAR VOLUME 92.4 fL (80.0-100.0); MEAN PLATELET VOLUME 7.7 fL (7.4-11.0); MONOCYTES # (AUTO) 0.3 x10^3/uL (0.3-0.8); MONOCYTES % (AUTO) 2.7 % (0.0-13.0); NEUTROPHILS # (AUTO) 11.6 x10^3/uL (2.2-4.8); NEUTROPHILS % (AUTO) 90.6 % (42.0-75.0); PLATELET COUNT 241 X10^3/uL (150.0-450.0); RED BLOOD COUNT 4.27 X10^6/uL (4.7-6.0); WHITE BLOOD COUNT 12.8 X10^3/uL (3.6-10.0)
[2023-12-16 06:41] LABS: ALANINE AMINOTRANSFERASE 29 Units/L (12-78); ALBUMIN 2.7 g/dL (3.4-5.0); ALKALINE PHOSPHATASE 53 Units/L (46-116); ASPARTATE AMINO TRANSFERASE 13 Units/L (15-37); BLOOD UREA NITROGEN 24 mg/dL (7-18); CALCIUM 8.4 mg/dL (8.5-10.1); CARBON DIOXIDE 29.1 mmol/L (21-32); CHLORIDE 104 mmol/L (98-107); COR CA(FOR HYPOALB) 9.4 mg/dL (8.5-10.1); COR NA(FOR HYPERGLY) 143 mmol/L (136-145); CREATININE 0.95 mg/dL (0.70-1.30); GLUCOSE 183 mg/dL (65-99); POTASSIUM 4.1 mmol/L (3.5-5.1); SODIUM 141 mmol/L (136-145); TOTAL PROTEIN 6.5 g/dL (6.4-8.2); eGFR NON BLACK RACES > 60 (>60)
[2023-12-16 06:54] LABS: PLATELET MORPHOLOGY COMMENT NORMAL (NORMAL)
[2023-12-16 12:18] VITALS: BP 127/73; PULSE 97; RESP 18; TEMP 97.9; O2SAT 98
--- NOTE | 2023-12-18 09:09 | PCM.DCPLAN ---
DISCHARGE SUMMARY Admission Date Date of Admission: 12/12/23 Discharge Date Discharge Date: 12/16/23 Admission Diagnoses (1) COPD (chronic obstructive pulmonary disease) with acute bronchitis: Status: Acute (2) Atrial fibrillation: Status: Acute Discharge Diagnoses Discharge Diagnosis: Same as admission Discharge Medications Discharge Medications: Home Medication List apixaban 5 mg tablet (Eliquis) 5 mg PO BID 12/12/23 [History] furosemide 40 mg tablet 40 mg PO BID 12/12/23 [History] ipratropium 0.5 mg-albuterol 3 mg (2.5 mg base)/3 mL nebulization soln 3 ml inhalation Q4-6H PRN 12/12/23 [History] levalbuterol HCl 1.25 mg/3 mL solution for nebulization 1.25 mg inhalation Q8- 10H PRN 12/12/23 [History] lisinopril 5 mg tablet 5 mg PO QDAY 12/12/23 [History] loratadine 10 mg tablet 10 mg PO QDAY 12/12/23 [History] metoprolol tartrate 50 mg tablet 50 mg PO BID 12/12/23 [History] simvastatin 20 mg tablet 20 mg PO QDAY 12/12/23 [History] azithromycin 250 mg tablet (Zithromax) 250 mg PO ONCE #6 tabs 12/16/23 [Rx] levalbuterol HCl 1.25 mg/3 mL solution for nebulization 1.25 mg (3 mL) NEB Q6H 14 days #168 mL 12/16/23 [Rx] Prescriptions: azithromycin [Zithromax] IDA PINO levalbuterol HCl IDA PINO Hospital Course Latest Lab Results: Laboratory Last Values WBC 12.8 X10^3/uL (3.6-10.0) H 12/16/23 05:58 RBC 4.27 X10^6/uL (4.7-6.0) L 12/16/23 05:58 Hgb 13.2 g/dL (13.5-18.0) L 12/16/23 05:58 Hct 39.5 % (42.0-54.0) L 12/16/23 05:58 MCV 92.4 fL (80.0-100.0) 12/16/23 05:58 MCH 31.0 pg (27.0-34.0) 12/16/23 05:58 MCHC 33.5 g/dL (33.0-35.0) 12/16/23 05:58 RDW 14.0 % (11.6-16.5) 12/16/23 05:58 Plt Count 241 X10^3/uL (150.0-450.0) 12/16/23 05:58 Plt Count Comment Adequate (ADEQUATE) 12/16/23 05:58 MPV 7.7 fL (7.4-11.0) 12/16/23 05:58 Neut % (Auto) 90.6 % (42.0-75.0) H 12/16/23 05:58 Lymph % (Auto) 6.6 % (21.0-51.0) L 12/16/23 05:58 [place] % (Auto) 2.7 % (0.0-13.0) 12/16/23 05:58 Eos % (Auto) 0.0 % (0.9-2.9) L 12/16/23 05:58 Baso % (Auto) 0.1 % (0.2-1.0) L 12/16/23 05:58 Neut # (Auto) 11.6 x10^3/uL (2.2-4.8) H 12/16/23 05:58 Lymph # (Auto) 0.8 X10^3/uL (1.3-2.9) L 12/16/23 05:58 [place] # (Auto) 0.3 x10^3/uL (0.3-0.8) 12/16/23 05:58 Eos # (Auto) 0.0 x10^3/uL (0.0-0.2) 12/16/23 05:58 Baso # (Auto) 0.0 X10^3/uL (0.0-0.1) 12/16/23 05:58 Absolute Nucleated RBC 0.1 /100WBC 12/16/23 05:58 Total Counted 100 12/16/23 05:58 Neutrophils % (Manual) 94 % (39-76) H 12/16/23 05:58 Band Neutrophils % 3 % (0-10) 12/13/23 05:20 Lymphocytes % (Manual) 5 % (13-43) L 12/16/23 05:58 Monocytes % (Manual) 1 % (4-9) L 12/16/23 05:58 Plt Morphology Comment Normal (NORMAL) 12/16/23 05:58 RBC Morphology Normal (NORMAL) 12/16/23 05:58 Sample Site Rrad 12/12/23 13:44 ABG pH 7.450 (7.35-7.45) 12/12/23 13:44 ABG pCO2 47.0 mmHg (35.0-45.0) H 12/12/23 13:44 ABG pO2 81.0 mmHg (80.0-100.0) 12/12/23 13:44 ABG HCO3 32.7 mmol/L (22-26) H* 12/12/23 13:44 ABG O2 Saturation 96.0 % (90-100) 12/12/23 13:44 ABG Base Excess 7.6 mmol/L (-2.0-2.0) H 12/12/23 13:44 Jacky Test Pos 12/12/23 13:44 A-a Gradient 88.0 mmHg 12/12/23 13:44 FiO2 32.0 12/12/23 13:44 Blood Gas Comments Pt rebecca well elj cdn 12/12/23 13:44 Sodium 141 mmol/L (136-145) 12/16/23 05:58 Corrected Sodium 143 mmol/L (136-145) 12/16/23 05:58 Potassium 4.1 mmol/L (3.5-5.1) 12/16/23 05:58 Chloride 104 mmol/L (98-107) 12/16/23 05:58 Carbon Dioxide 29.1 mmol/L (21-32) 12/16/23 05:58 BUN 24 mg/dL (7-18) H 12/16/23 05:58 Creatinine 0.95 mg/dL (0.70-1.30) 12/16/23 05:58 Est GFR (MDRD) Af Amer > 60 (>60) 12/16/23 05:58 Est GFR (MDRD) Non-Af > 60 (>60) 12/16/23 05:58 Glucose 183 mg/dL (65-99) H 12/16/23 05:58 Calcium 8.4 mg/dL (8.5-10.1) L 12/16/23 05:58 Corrected Calcium 9.4 mg/dL (8.5-10.1) 12/16/23 05:58 Magnesium 2.3 mg/dL (2.0-2.9) 12/16/23 05:58 Total Bilirubin 0.10 mg/dL (0.2-1.0) L 12/16/23 05:58 AST 13 Units/L (15-37) L 12/16/23 05:58 ALT 29 Units/L (12-78) 12/16/23 05:58 Alkaline Phosphatase 53 Units/L (46-116) 12/16/23 05:58 Creatine Kinase 40 Units/L (39-308) 12/13/23 05:20 Troponin I High Sens < 4.0 ng/L (4.0-60.0) L 12/13/23 05:20 Total Protein 6.5 g/dL (6.4-8.2) 12/16/23 05:58 Albumin 2.7 g/dL (3.4-5.0) L 12/16/23 05:58 Globulin 3.8 g/dL (2.5-4.5) 12/16/23 05:58 Albumin/Globulin Ratio 0.7 Ratio (1.1-2.1) L 12/16/23 05:58 Specimen Type Clean catch urine 12/12/23 14:15 Urine Color Yellow (YELLOW) 12/12/23 14:15 Urine Appearance Clear (CLEAR) 12/12/23 14:15 Urine pH 7.0 (5.0 - 8.0) 12/12/23 14:15 Ur Specific [place] 1.010 (1.000-1.030) 12/12/23 14:15 Urine Protein Negative (NEGATIVE) 12/12/23 14:15 Urine Glucose (UA) Negative (NEGATIVE) 12/12/23 14:15 Urine Ketones Negative (NEGATIVE) 12/12/23 14:15 Urine Blood 1+ (NEGATIVE) 12/12/23 14:15 Urine Nitrite Negative (NEGATIVE) 12/12/23 14:15 Urine Bilirubin Negative (NEGATIVE) 12/12/23 14:15 Urine Urobilinogen Normal (NORMAL) 12/12/23 14:15 Ur Leukocyte Esterase Negative (NEGATIVE) 12/12/23 14:15 Urine RBC 0-2 /HPF (0-3) 12/12/23 14:15 Urine WBC None seen /HPF (0-5) 12/12/23 14:15 Ur Squamous Epith Cells Rare /HPF (NEGATIVE) 12/12/23 14:15 Urine Bacteria Negative /HPF (NEGATIVE) 12/12/23 14:15 Ur Culture Indicated? No/not indicated 12/12/23 14:15 Resp Viral Panel (PCR) See scanned report 12/12/23 13:20 Hospital Course: Patient is a 58 year old white male who was a direct admit on 12/12/[address] Slaughter's [place] office for treatment of COPD exacerbation after failing outpatient treatment. Upon admission, patient was started on IV azithromycin, rocephin and IV steroids. We obtained sputum, urine, blood cultures- all resulted negative. He had a chest xray upon admission that showed no acute cardiopulmonary abnormality. His ABG showed Co2 retention. We obtained a repeat chest xray on 12/13/23 that showed COPD and no acute finding. His heart rate was elevated, so cardizem was added with benefits. On 12/14/23, patient had a spike in white blood cell count. His antibiotic regimen was changed to IV Levaquin with improvements seen the following day. 12/15/23 chest xray continued to show no acute cardiopulmonary disese. 12/16/23 AM labs: Hgb 13.2, wbc 12.8, BUN 24, creatinine 0.95. Morning vitals: 120/[id number]% on 3L NC. Patient states that he is feeling much improved, so we will allow him to discharge home on po abx and levalbuterol neb. He will need to follow up with his primary care provider and has an appointment scheduled on 12/19/23 at 1:15PM. Please see discharge plan for list of discahrge medications and modifications that we made, electronic medical record for diagnostic tests and labs. The patient was instructed to return to the ER if condition changed or worsened unexpectedly.
== END 2023-12-16 14:30 | disposition home or self-care (01) | DRG 192 ==
LOC: MED/SURG → OBSVTOIN 12:56
PROVIDERS: ADMIT Internal Medicine; ATTEND Internal Medicine
DX: I48.91 Unspecified atrial fibrillation; J20.8 Acute bronchitis due to other specified organisms; Z79.01 Long term (current) use of anticoagulants; I25.10 Atherosclerotic heart disease of native coronary artery without angina pectoris; R06.02 Shortness of breath; J44.1 Chronic obstructive pulmonary disease with (acute) exacerbation; R00.0 Tachycardia, unspecified; Z99.81 Dependence on supplemental oxygen; R26.89 Other abnormalities of gait and mobility